=== PATIENT | female | born 1965 ===

== ENCOUNTER 2017-06-17 08:53 | Day surgery (SDC) | payer OTHER ==
[2017-06-17] MEDS ORDERED: Lidocaine Hydrochloride 5 ML INJ ONE (11:59)
[2017-06-17] MEDS ORDERED: Propofol 10 mg/ml Inj (20 ML) ONE (11:59)
[2017-06-17] MEDS ORDERED: Midazolam 2 MG/2 ML VIAL ONE (11:59)
[2017-06-17 13:08] VITALS: TEMP 97.5
[2017-06-17 13:09] VITALS: RESP 15
[2017-06-17 13:49] VITALS: BP 124/77; PULSE 68; O2SAT 99
== END 2017-06-17 13:47 | disposition home or self-care (01) ==
LOC: C.ENDO 08:53
PROVIDERS: ATTEND Internal Medicine
DX: R10.13 Epigastric pain (principal); Z12.11 Encounter for screening for malignant neoplasm of colon; K44.9 Diaphragmatic hernia without obstruction or gangrene; K29.70 Gastritis, unspecified, without bleeding; D12.3 Benign neoplasm of transverse colon; K64.8 Other hemorrhoids
CPT/HCPCS: 43239; 45380; 88305; J2250; J2704; J3010